=== PATIENT | male | born 1965 | race Caucasian/White ===

== ENCOUNTER 2024-07-14 17:13 | Emergency (ER) | payer OTHER, SELFPAY ==
[2024-07-14 17:22] VITALS: BP 159/101
[2024-07-14 17:41] LABS: % Basophils 0.8 % (0-2); % Eosinophils 2.8 % (0-6); % Immature Granulocytes 0.2 % (0-0.5); % Lymphocytes 38.1 % (20.5-51.1); % Neutrophils 47.1 % (42.2-75.2); Absolute Basophils 0.1 10^3/uL (0-0.2); Absolute Eosinophils 0.3 10^3/uL (0-0.7); Absolute Lymphocytes 3.4 10^3/uL (1.2-3.4); Absolute Neutrophils 4.2 10^3/uL (1.4-6.5); Hematocrit 37.5 % (39.0-52.0); Hemoglobin 12.7 g/dL (13.0-18.0); Mean Corp Hgb Conc. 33.9 g/dL (33.0-37.0); Mean Corpuscular Hgb 29.1 pg (27.0-31.0); Mean Corpuscular Volume 85.8 fL (80.0-94.0); Mean Platelet Volume 8.5 fL (7.4-10.4); Nucleated Red Blood Cells % 0 % (-); Platelet Count 310 10^3/uL (130-400); Red Blood Cell Count 4.37 10^6/uL (4.70-6.10); Red Cell Dist. Width 11.9 % (11.5-14.5); White Blood Cell Count 8.9 10^3/uL (4.8-10.8)
[2024-07-14 17:52] LABS: ALT (SGPT) 20 U/L (0-50); AST (SGOT) 26 U/L (17-59); Albumin 4.4 g/dl (3.5-5.0); Alkaline Phosphatase 49 U/L (38-126); Blood Urea Nitrogen 9 mg/dl (9-20); Calcium 9.5 mg/dl (8.4-10.2); Carbon Dioxide 29 mmol/L (22-30); Chloride 100 mmol/L (98-107); Glucose 142 mg/dl (70-99); Potassium 4.2 mmol/L (3.5-5.1); Sodium 141 mmol/L (135-145); Total Bilirubin 0.9 mg/dl (0.2-1.3); Total Protein 6.9 g/dl (6.3-8.2); eGFR > 60.00
[2024-07-14 18:17] VITALS: BMI 30.3
[2024-07-14 18:22] VITALS: BP 149/87
[2024-07-14 19:00] VITALS: BP 132/86
--- NOTE | 2024-07-14 19:53 | ED.CVA ---
History of Present Illness
General
Chief Complaint: CVA/TIA Symptoms
Source: patient and spouse
Exam Limitations: none
Time Seen by Provider: 07/14/24 18:53
Nursing documentation reviewed up to this point in time: agreed with
Onset of Stroke Symptoms
Onset of symptoms known: Yes
Date of onset of symptoms: 07/12/24
History of Present Illness
History of Present Illness:
Patient with history of type 2 diabetes, presents to ED secondary to left arm weakness and numbness, although improving over the past 2 days. Patient reports attending [employer] 2 days ago. While sitting at the table, prior to having eaten
any meals, patient reports having had 2 drinks of alcohol, which he does not normally drink. Shortly afterwards, he was noted to pass out on the table. Patient's spouse was notified immediately and was able to wake the patient up quickly. There
was no confusion. Patient had no complaints when he woke up. Patient was shortly afterwards, transported to vehicle by his and his children. During the ride home, which took approximately half hour to 1 hour, he was noted to fall asleep
again, onto his left side. When he got out of the car at the house, he felt tingling in his left arm. He proceeded to go to sleep as soon as he got home. When he woke up following morning, tingling sensation was worse, and he was unable to lift
his left wrist. Since then, patient states that his symptoms have improved. Denies headache. Denies neck pain. Denies trauma. Denies difficulty ambulation. Denies dizziness. Denies blurred vision. Denies difficulty with speech. Denies
previous history of similar symptoms.
Past History
Past History
ED Past Medical History: HTN, Hypercholesterolemia and NIDDM
Social History
Tobacco: Former smoker
Alcohol: Former
Drug: None
Personal:
Living: with family
Family History
Family History: Other (CAD in a grandfather. His father had CABG at age 60)
Review of Systems
Review of Systems
Allergies reviewed?: Yes
All Other Systems: ROS reviewed and negative except as documented in HPI and ROS
Constitutional: Reports no symptoms
Respiratory: Reports no symptoms
Cardiac: Reports syncope
ABD/GI: Reports no symptoms
Musculoskeletal: Reports no symptoms
Skin: Reports no symptoms
Neurological: Reports weakness and numbness
Phy Exam
Physical Exam
Physical Exam:
Physical Exam
General: no apparent distress, not acutely ill. afebrile
Head: nc/at. eomi
Neck: supple. normal range of motion.
Heart: s1/s2 regular rate and rhythm, no murmur. equal radial pulses.
Lungs: no acute respiratory distress. clear bilaterally
Abdomen: normal bowel sounds. not tender.
Neuro: alert and oriented x 3. no focal sensory deficit. LUE: left hand weakness noted and decreased wrist extension noted. normal gait.
Skin: no rash
Psychiatric: well kept. interactive and cooperative
Extremities: no edema. no calf tenderness.
Course
Orders/Labs/Results
Orders:
Orders
07/14/24 17:25
Electrocardiogram (*1) Urgent
Reason for Study: TIA/Stroke
CT Head W/o Iv Contrast Urgent
Comment:
Reason For Exam: weakness to left arm
EKG- Treatment ONCE
07/14/24 17:30
Complete Blood Count/With Diff Urgent
Comprehensive Metabolic Panel Urgent
Abnormal Lab Results
07/14/24
17:30
RBC 4.37 L 10^6/uL
(4.70-6.10)
Hgb 12.7 L g/dL
(13.0-18.0)
Hct 37.5 L %
(39.0-52.0)
Absolute Monos (auto) 1.0 H 10^3/uL
(0.1-0.6)
Monocytes % 11.0 H %
(1.7-9.3)
Glucose 142 H mg/dl
(70-99)
07/14/24 17:30
07/14/24 17:30
Vital Signs
Initial and Last Documented VS:
Initial Vital Signs
Temp Pulse Resp BP Pulse Ox
98.0 F 102 16 159/101 98
07/14/24 17:22 07/14/24 17:22 07/14/24 17:22 07/14/24 17:22 07/14/24 17:22
Last Documented Vital Signs
Temp Pulse Resp BP Pulse Ox
98.8 F 81 17 130/81 97
07/14/24 19:53 07/14/24 20:00 07/14/24 20:00 07/14/24 20:00 07/14/24 20:00
MDM/Problems Addressed
MDM/Problems Addressed:
History and exam consistent with likely vasovagal syncope at [employer]. 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
has been rapid improvement over the past 24 hours. Patient will be advised to follow-up with his PCP this week for reevaluation, or return to ED with worsening symptoms. Explained to the patient importance of f/u as it is difficult to complete
exclude remote possibility of cva. Patient and spouse expressed understanding at time of discharge.
*Critical Care Note
Total Time (30-74mins, 75-104mins- exclusive of procedures): Not Applicable
ED Attending Note
-
Portions of this chart may have been created with voice recognition software.� Occasional wrong word or��sound alike� substitutions may have occurred due to the inherent limitations of voice recognition software.
Discharge Plan
Departure
Patient Disposition: Home (Routine Discharge)
Date of Disposition: 07/14/24
Time of Disposition: 20:00
Patient with high blood pressure during this ER visit?: Yes
Discharge Problem:
Brachial plexus palsy, Vasovagal syncope
Instructions: Radial Nerve Entrapment (DC), Vasovagal Response (DC)
Prescriptions:
No Action
atorvastatin 20 MG tablet
20 mg PO DAILY
metformin 1,000 MG tablet
1,000 mg PO BID@0800,1700
bupropion HCl 75 MG tablet
75 mg PO DAILY
lisinopril 20 MG tablet
20 mg PO DAILY
Patient Comments:
03/25/21-patien this was recently increased to 20mg daily
glipizide 10 MG tablet
10 mg PO BID
gabapentin 300 MG capsule
600 mg PO TID
cyanocobalamin (vitamin B-12) 1,000 MCG tablet
1,000 mcg PO DAILY
magnesium oxide 500 MG tablet
500 mg PO DAILY
Buprenorphine Hcl/Naloxone Hcl [Buprenorphine-Nalox 8-2 Mg Tab] 1 EACH Tab.Subl
1 tab sublingual BID@0800,1700
Patient Comments:
emiliano pharmcay 03/21/21 #75, clarified with patient he has dissolvable tablets at home
Buprenorphine Hcl/Naloxone Hcl [Buprenorphine-Nalox 8-2 Mg Tab] 1 EACH Tab.Subl
0.25 tab sublingual HSPRN PRN (Reason: sleep/agitation)
famotidine [Pepcid] 40 mg tablet
40 mg PO DAILY Qty: 14 0RF
pantoprazole 40 mg tablet,delayed release (DR/EC)
40 mg PO DAILY Qty: 14 0RF
Referrals:
Cheli Valerio DO [Family Provider] -
Activity Restrictions/Additional Instructions:
As discussed, please follow-up with your primary care physician this week for reevaluation. Please consider return to ED with worsening symptoms, i.e. new or worsening neurological deficit.
Interventions
Interventions:
*Risk Screen - Suicide Last Done: 07/14/24 17:22
*General Assessment Last Done: 07/14/24 18:17
*Neglect/Abuse Screening Last Done: 07/14/24 17:22
ED- Fall Risk Assessment Last Done: 07/14/24 18:38
*ED COVID-19 Vaccine History Last Done: 07/14/24 18:17
*Nursing Disposition Last Done: 07/14/24 20:18
ED- Pulmonary Assessment Last Done: 07/14/24 18:17
ED- Neurological Assessment Last Done: 07/14/24 19:54
ED- Cardiac Assessment Last Done: 07/14/24 18:17
ED Swallowing Screen Last Done: 07/14/24 19:53
Discharge Date and Time
Discharge Date/Time: 07/14/24 20:18
Print Language: OCCITAN
[2024-07-14 20:00] VITALS: BP 130/81
== END 2024-07-14 20:18 | disposition home or self-care (01) ==
LOC: EMR 17:13
PROVIDERS: EMERGENCY PHYSICIAN Emergency Medicine; FAMILY PHYSICIAN Family Medicine
DX: G54.0 Brachial plexus disorders (principal); R55 Syncope and collapse; I10 Essential (primary) hypertension; E78.00 Pure hypercholesterolemia, unspecified; E11.9 Type 2 diabetes mellitus without complications; Z82.49 Family history of ischemic heart disease and other diseases of the circulatory system; Z87.891 Personal history of nicotine dependence
CPT/HCPCS: 99284; 70450; 80053; 85025; 93005